=== PATIENT | male | born 1940 | race Caucasian/White ===

== ENCOUNTER 2017-11-27 11:56 | Day surgery (SDC) | payer MEDICARE, OTHER ==
[2017-11-27] MEDS ORDERED: LIDOCAINE HCL 1% 20ML VIAL (Pyxis) INJ ONE (12:10)
[2017-11-27] MEDS ORDERED: IODIXANOL 320MG/ML 100 ML BOTTLE IV ONE (12:10)
[2017-11-27] MEDS ORDERED: HEPARIN SODIUM 1,000 UNIT/1ML VIAL IV ONE (12:35)
[2017-11-27] MEDS ORDERED: NICARDIPINE 100MCG/ML 10ML VIAL (CATH LAB) IV ONE (12:35)
[2017-11-27] MEDS ORDERED: NITROGLYCERIN 50MCG/ML 10ML VIAL (CATH LAB) IV ONE (12:35)
[2017-11-27] MEDS ORDERED: FENTANYL CITRATE/PF 50MCG/ML 2ML VIAL ONE (13:12)
[2017-11-27] MEDS ORDERED: MIDAZOLAM HCL 2 MG/2 ML VIAL ONE (13:12)
[2017-11-27] MEDS ORDERED: ASPIRIN/SOD BICARB/CITRIC ACID 324MG TAB EFF ONE (13:34)
[2017-11-27] MEDS ORDERED: ACETAMINOPHEN 325MG TABLET PO PRN (16:00)
[2017-11-27] MEDS ORDERED: MORPHINE SULFATE 4 MG/ML CPJ (NOT FOR IM USE) IV PRN (16:00)
[2017-11-27] MEDS ORDERED: ONDANSETRON HCL 4MG/2ML VIAL IV PRN (16:00)
== END 2017-11-27 17:07 | disposition home or self-care (01) ==
LOC: CCL 11:56
PROVIDERS: ATTEND Specialist
DX: I25.10 Atherosclerotic heart disease of native coronary artery without angina pectoris (principal); I49.3 Ventricular premature depolarization; I45.2 Bifascicular block; Z86.718 Personal history of other venous thrombosis and embolism; Z79.01 Long term (current) use of anticoagulants; Z79.899 Other long term (current) drug therapy; Z88.0 Allergy status to penicillin
CPT/HCPCS: 93458; 99152; 99153; C1769; C1887; C1893; J1644; J2250; J3010; J3490; J7030; Q9967